=== PATIENT | male | born 1970 | race African-American/Black ===

== ENCOUNTER 2020-03-13 18:03 | Emergency (ER) | payer OTHER ==
[~2020-03-13] VITALS: Ht 165.1 cm; Wt 72.6 kg
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
--- NOTE | 2020-03-13 18:38 | NUR ---
ED Nurse Note: pt taken to CT.
[2020-03-13 18:47] VITALS: BP 136/85
--- NOTE | 2020-03-13 18:51 | NUR ---
ED Nurse Note: pt returned from CT.
--- NOTE | 2020-03-13 18:59 | Diagnostic Imaging Report ---
EXAM: XR Lumbosacral Spine, 2 or 3 Views CLINICAL HISTORY: PAIN TECHNIQUE: Frontal and lateral views of the lumbar spine and sacrum. COMPARISON: No relevant prior studies available. FINDINGS: Vertebrae: Probably incorrect side marker applied on frontal lumbar spine radiograph, with calcification superimposed over the right renal shadow or in the region of the gallbladder also seen on same-day right rib radiographs but potentially incorrectly marked as left. Spine straightening could represent patient positioning or muscle spasm. No acute fracture. Normal alignment. Sacrum/coccyx: Anterior angulation at the second distalmost coccygeal segment without clear fracture could represent normal anatomic variation or could represent sequela of trauma. Disc spaces: Minimal age-related disc degenerative findings at T11-T12. Soft tissues: Right inguinal region hernia repair anchors. Possible cholelithiasis or left nephrolithiasis 0.2 cm calcification. Other findings: Otherwise no acute traumatic injury seen. IMPRESSION: 1. Probably incorrect side marker applied on frontal lumbar spine radiograph, with calcification superimposed over the right renal shadow or in the region of the gallbladder also seen on same-day right rib radiographs but potentially incorrectly marked as left. 2. Anterior angulation at the second distalmost coccygeal segment without clear fracture could represent normal anatomic variation or could represent sequela of trauma. 3. Otherwise no acute traumatic injury seen. 4. Spine straightening could represent patient positioning or muscle spasm.
--- NOTE | 2020-03-13 19:00 | Diagnostic Imaging Report ---
EXAM: XR Right Ribs, 2 Views CLINICAL HISTORY: PAIN TECHNIQUE: Frontal and oblique views of the right ribs. COMPARISON: No relevant prior studies available. FINDINGS: Lungs: Unremarkable as visualized. No consolidation. Pleural space: Unremarkable. No pneumothorax. Bones/joints: Unremarkable. No acute fracture. IMPRESSION: Unremarkable right rib x-rays.
--- NOTE | 2020-03-13 19:01 | Diagnostic Imaging Report ---
EXAM: XR Right Foot Complete, 3 or More Views CLINICAL HISTORY: PAIN TECHNIQUE: Frontal, lateral and oblique views of the right foot. COMPARISON: No relevant prior studies available. FINDINGS: Bones/joints: Tiny ossific focus at the anterior distal tibial tip could represent a tiny fracture of uncertain chronicity. Anterior tibiotalar morphology suggests possible chronic impingement. Otherwise unremarkable bones and soft tissues. No dislocation. Soft tissues: See above. Other findings: Otherwise no acute traumatic injury seen. IMPRESSION: 1. Tiny ossific focus at the anterior distal tibial tip could represent a tiny fracture of uncertain chronicity. 2. Otherwise no acute traumatic injury seen. 3. Anterior tibiotalar morphology suggests possible chronic impingement.
--- NOTE | 2020-03-13 19:03 | NUR ---
ED Nurse Note: Report given to Jaky MARTÍNEZ.
--- NOTE | 2020-03-13 19:27 | Diagnostic Imaging Report ---
EXAM: CT Cervical Spine Without Intravenous Contrast CLINICAL HISTORY: PAIN TECHNIQUE: Axial computed tomography images of the cervical spine without intravenous contrast. CTDI is 20.20 mGy and DLP is 544.60 mGy-cm. One or more of the following dose reduction techniques were used: automated exposure control, adjustment of the mA and/or kV according to patient size, use of iterative reconstruction technique. Coronal and sagittal reformatted images were created and reviewed. Axial reformatted images were created and reviewed. COMPARISON: No relevant prior studies available. FINDINGS: Vertebrae: Spine straightening could represent patient positioning or muscle spasm. No acute fracture. Discs/spinal canal/neural foramina: Mild multilevel age-related degenerative spine findings. No spinal canal stenosis. Soft tissues: Unremarkable. IMPRESSION: 1. No acute traumatic injury. 2. Spine straightening could represent patient positioning or muscle spasm. 3. Mild multilevel age-related degenerative spine findings.
[2020-03-13] MEDS ORDERED: LIDODERM700 M1 TOPIC (19:47)
[2020-03-13] MEDS ORDERED: ROBAXIN-750750 MG PO (19:47)
[2020-03-13] MEDS ORDERED: IBUPROFEN600 M1 ORAL (19:47)
[2020-03-13 19:54] VITALS: BP 139/79
--- NOTE | 2020-03-13 19:54 | NUR ---
ER DISCHARGE NOTE: Patient is cleared to be discharged home per ERMD, pt is aox4, 99% n room air, with stable vital signs. pt was given dc and prescription instructions, pt was able to verbalize understanding, pt id band removed pt is able to ambulate with steady gait. pt took all belongings.
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
== END 2020-03-13 19:54 | disposition home or self-care (01) ==
LOC: EMR 18:26
DX: M54.2 Cervicalgia (principal); R07.81 Pleurodynia; M25.571 Pain in right ankle and joints of right foot; Z88.6 Allergy status to analgesic agent; V03.99XA Pedestrian with other conveyance injured in collision with car, pick-up truck or van, unspecified whether traffic or nontraffic accident, initial encounter; Y92.9 Unspecified place or not applicable; M47.812 Spondylosis without myelopathy or radiculopathy, cervical region
CPT/HCPCS: 71100; 72020; 72125; 73630; Z7502; 99284